=== PATIENT | male | born 2000 | race Caucasian/White ===

== ENCOUNTER 2019-11-19 11:07 | Emergency (ER) | payer OTHER ==
[2019-11-19] MEDS ORDERED: ROPIVACAINE 0.5% PF 20 ML AMPULE SUBQ STA (11:32)
--- NOTE | 2019-11-19 12:11 | XRAY Report ---
Reason: crush injury Procedure Date: 11/19/2019 Accession Number: [id number] / [id number] Procedure: XR - Hand 3 View LT CPT Code: Final Report FULL RESULT: PROCEDURE: Hand 3 View LT INDICATIONS: crush injury TECHNIQUE: 4 views of the hand(s) acquired. COMPARISON: None FINDINGS: Bones: The fingers are flexed, decreasing the ability to visualize bony detail. It is also difficult to identify the exact fingers that are injured. Patient states pain is in the third and fourth digit after a crush injury. However, the images suggest fractures involving the fourth and fifth fingers. There is a nondisplaced mildly comminuted distal phalanx fracture of what appears to be the fifth finger. There is a mildly displaced proximal shaft fracture of the proximal phalanx of what may be the fourth finger. No other fractures or dislocations. No suspicious bony lesions. Soft tissues: No suspicious soft tissue calcifications. IMPRESSION: 1. Suboptimal visualization secondary to hand positioning (patient was unable to extend his fingers) 2. There are 2 separate digits that have identifiable fractures on these images. 3. Nondisplaced mildly comminuted shaft fracture of the distal phalanx of what appears to be the fifth finger. 4. Mildly displaced proximal shaft fracture of the proximal phalanx of what appears to be the fourth finger. Comment: Recommend clinical correlation. Consider repeat films. Reviewed by: Yash Siddiqui MD on 11/19/2019 12:09 PM PDT Approved by: Yash Siddiqui MD on 11/19/2019 12:09 PM PDT Station ID: [id number]
--- NOTE | 2019-11-19 12:39 | ED Physician Documentation ---
PD HPI UPPER EXT INJURY - Stated complaint Stated Complaint: L HAND LAC - Chief complaint Chief Complaint: Laceration - History obtained from History obtained from: Patient - History of Present Illness Location: Left, Hand Type of injury: Crush Where injury occurred: Work Timing - onset: How many hours ago (1) Timing - duration: Hours (1) Timing - details: Abrupt onset Pain level max: 5 Pain level now: 4 Improved by: Rest Worsened by: Moving, Palpating Associated symptoms: Swelling. No: Weakness, Numbness, Tingling Contributing factors: No: Anticoagulated, Prior ortho surgery, Prosthetic joint Recently seen: Not recently seen Review of Systems Constitutional: denies: Fever, Chills Nose: denies: Rhinorrhea / runny nose, Congestion Respiratory: denies: Cough GI: denies: Nausea, Vomiting, Diarrhea Skin: denies: Rash Musculoskeletal: denies: Neck pain, Back pain Neurologic: denies: Headache PD PAST MEDICAL HISTORY - Past Medical History Past Medical History: No - Present Medications Home Medications: Ambulatory Orders Medication Instructions Recorded Confirmed Cephalexin [Keflex] 500 mg PO Q6H #28 capsule 11/19/19 Ibuprofen [Motrin] 800 mg PO Q8H PRN #30 tablet 11/19/19 - Allergies Allergies/Adverse Reactions: Allergies Allergy/AdvReac Type Severity Reaction Status Date / Time No Known Drug Allergies Allergy Verified 11/19/19 11:17 - Living Situation Living Situation: reports: With family Living Arrangement: reports: At home - Social History Does the pt have substance abuse?: No - Family History Family history: reports: Non contributory - Immunizations Immunizations are current?: Yes Immunizations: TDAP current <10years PD ED PE NORMAL - Vitals Vital signs reviewed: Yes - General General: Alert and oriented X 3, No acute distress - HEENT HEENT: Moist mucous membranes - Neck Neck: Supple, no meningeal sign - Derm Derm: Warm and dry - Neuro Neuro: Alert and oriented X 3 - Psych Psych: Normal mood PD ED PE EXPANDED - Extremities KRISTINA UE/Hands Visual: 1 - laceration (3 cm, curved, flap. Tendon intact. Strength test against resistance. Neurovascularly intact) 2 - abrasion (Mild skin avulsion. There is also tenderness over the mid phalanx. No deformity. Neurovascular intact. Strength test against resistance) 3 - tenderness (TTP, no deformity. NVI) Results - Vitals Vitals: Vital Signs - 24 hr 11/19/19 11/19/19 11:08 13:13 Temperature 37.0 C 37.5 C Heart Rate 57 L 70 Respiratory 16 16 Rate Blood Pressure 134/84 H 126/66 O2 Saturation 100 99 Oxygen O2 Source Room air - Rads (name of study) L hand xray Radiology: Prelim report reviewed, EMP read contemporaneously, See rad report (1. Suboptimal visualization secondary to hand positioning (patient was unable to extend his fingers) 2. There are 2 separate digits that have identifiable fr actures on these images. 3. Nondisplaced mildly comminuted shaft fracture of the distal phalanx of what appears to be the fifth finger. 4. Mildly displaced proximal shaft fracture of the proximal phalanx of what appears to be the fourth finger. ) Procedures - Laceration (location) L middle finger Length in cm: 3 Wound type: Curved, Flap, Into subcut fat, Clean Neurovascular status: Sensory intact, Motor intact, Vascular intact Tendon involvement: Tendon intact Anesthesia: OTH (ropivicaine 0.5%) Wound Preparation: Irrigated copiously NS, Wound explored, To the base Skin layer closure: Nylon, Interrupted, Size #-0 - enter number (4) Other: Patient tolerated well, No complications, Neurovascular intact, Dressing applied, Tetanus UTD Complexity: Simple - Splint (location) L hand Splint applied by: Physician, Tech Type of splint: Fiberglass, Volar cock up Other: Patient tolerated well, No complications, Neurovascular intact PD MEDICAL DECISION MAKING - ED course Complexity details: reviewed results, considered differential, d/w patient ED course: 19-year-old male with a crush injury to the left hand. Laceration was repaired. The ring finger also has a small skin avulsion, no suture needed at this site. Volar splint applied for the [address] on Keflex as well. Patient will follow-up with his doctor for further care. Warnings of infection and instructions on wound care given at bedside. Also counseled on how to minimize scarring. Patient counseled regarding signs and symptoms for which I believe and urgent re-evaluation would be necessary. Patient with good understanding of and agreement to plan and is comfortable going home at this time This document was made in part using voice recognition software. While efforts are made to proofread this document, sound alike and grammatical errors may occur. Departure - Departure Disposition: 01 Home, Self Care Clinical Impression: Finger laceration Qualifiers: Encounter type: initial encounter Finger: unspecified finger Damage to nail status: without damage Foreign body presence: without foreign body Laterality: left Qualified Code(s): S61.219A - Laceration without foreign body of unspecified finger without damage to nail, initial encounter Finger fracture, left Qualifiers: Encounter type: initial encounter Finger: ring finger Fracture type: closed Phalanx: middle Fracture alignment: displaced Qualified Code(s): S62.625A - Displaced fracture of middle phalanx of left ring finger, initial encounter for closed fracture Condition: Good Instructions: ED Fx Finger Closed, ED Laceration All Follow-Up: your,doctor in 1 week [Other] Prescriptions: Cephalexin [Keflex] 500 mg PO Q6H #28 capsule Ibuprofen [Motrin] 800 mg PO Q8H PRN #30 tablet PRN Reason: PAIN &/OR FEVER Comments: You have a fracture of your fourth finger in the middle phalanx. You also have a fracture of the fifth finger distal phalanx. The laceration on the third digit will need the sutures removed in approximately 10 days. Follow-up with your doctor in about a week for a wound check. You also may need to see orthopedics to ensure that the fractures in your fingers are healing appropriate ly. Take all antibiotics until gone. Return if you worsen. Discharge Date/Time: 11/19/19 13:25
[2019-11-19] MEDS ORDERED: BACITRACIN ZINC OINT 1 PACKET TOP STA (12:44)
[2019-11-19 13:18] VITALS: BP 126/66
== END 2019-11-19 13:25 | disposition home or self-care (01) ==
LOC: ED 11:07
DX: S62.667A Nondisplaced fracture of distal phalanx of left little finger, initial encounter for closed fracture (principal); S62.625A Displaced fracture of middle phalanx of left ring finger, initial encounter for closed fracture; S61.213A Laceration without foreign body of left middle finger without damage to nail, initial encounter; S60.414A Abrasion of right ring finger, initial encounter; W31.9XXA Contact with unspecified machinery, initial encounter; Y99.0 Civilian activity done for income or pay
CPT/HCPCS: 12002; 29125; 73130; 99283; 99284; A9270

== ENCOUNTER 2019-11-25 12:58 | Day surgery (SDC) | payer OTHER ==
[2019-11-25] MEDS ORDERED: CEFAZOLIN SODIUM IN 0.9 % NACL 2 GM/100 ML BAG IV ONE (13:13)
[2019-11-25] MEDS ORDERED: LACTATED RINGERS 1,000 ML IV ONE (13:36)
--- NOTE | 2019-11-25 14:59 | ANESTHESIA ---
Pre-Anesthesia VS, & Labs - Diagnosis left 4th finger fracture - Procedure left Percutaneous pinning of 4th finger Vital Signs: Temp Pulse Resp BP Pulse Ox 36.5 C 54 L 18 105/54 L 98 11/25/19 13:16 11/25/19 13:16 11/25/19 13:16 11/25/19 13:16 11/25/19 13:16 Height 5 ft 6 in Weight (kg) 70.4 kg Body Mass Index 25.8 - NPO Other (6 hour npo) Home Medications and Allergies Allergies/Adverse Reactions: Allergies Allergy/AdvReac Type Severity Reaction Status Date / Time No Known Drug Allergies Allergy Verified 11/19/19 11:17 Anes History & Medical History - Anesthetic History Anesthesia Complications: reports: No previous complications - Medical History Cardiovascular: reports: None Pulmonary: reports: None Gastrointestinal: reports: None Urinary: reports: None Musculoskeletal: reports: None Endocrine/Autoimmune: reports: None Skin: reports: None Exam General: Alert Dental: WNL Mouth Opening: Greater than 4 Fingerbreadths Neck Mobility: Normal Mallampati classification: I Thyromental Distance: greater than 6 cm Respiratory: Lungs clear Cardiovascular: Regular rate Plan Anesthesia Type: MAC Consent for Procedure(s) Verified and Reviewed: Yes Code Status: Attempt Resuscitation ASA classification: 1-Healthy patient Is this case an emergency?: No
[2019-11-25] MEDS ORDERED: fentaNYL 100 MCG/2 ML VIAL IVP ONE (15:30)
[2019-11-25] MEDS ORDERED: MIDAZOLAM 2 MG/2 ML VIAL IVP ONE (15:30)
[2019-11-25] MEDS ORDERED: PROPOFOL 200 MG/20 ML VIAL IVP ONE (15:30)
[2019-11-25] MEDS ORDERED: LIDOCAINE-MPF 2% 5 ML VIAL IM ONE (15:30)
[2019-11-25] MEDS ORDERED: LIDOCAINE-MPF 1% 30 ML VIAL ONE (15:34)
[2019-11-25] MEDS ORDERED: BUPIVACAINE 0.5% PF 30 ML VIAL ONE (15:34)
[2019-11-25] MEDS ORDERED: BUPIVACAINE 0.25% PF 30 ML VIAL ONE (15:34)
[2019-11-25] MEDS ORDERED: BUPIVACAINE 0.25% PF 30 ML VIAL SUBQ ONE (16:05)
[2019-11-25] MEDS ORDERED: LIDOCAINE 1% 50 ML MDV SUBQ ONE (16:05)
[2019-11-25] MEDS ORDERED: ONDANSETRON 4 MG/2 ML VIAL IVP PRN (17:31)
[2019-11-25] MEDS ORDERED: oxyCODONE 5 MG TABLET PO PRN (17:31)
--- NOTE | 2019-11-25 17:41 | OPERATIVE REPORT ---
Operative Report - Other Other Information/Narrative: Date of Surgery: 25 November 2019 Pre-Op Diagnosis: Left ring finger P2 open fracture. Left middle finger laceration. Left small finger P3 closed fracture Procedure: Open reduction percutaneous fixation of left ring finger fracture. Irrigation and debridement and exploration of left ring finger. Exploration, irrigation, and debridement of middle finger. Closed treatment of small finger P3 fracture Postop Diagnosis: Same Primary Surgeon: Timo Avila Secondary Surgeon: Enrique Dobbs Complications: None Tourniquet Time: None EBL: 5 cc Implants: 1.1 mm K wires buried under the skin Postoperative Protocol: Remain in splint until 4 weeks. Begin gentle range of motion for 4 to 8 weeks. Pin removal at 6 to 8 weeks. Indication For Surgery: 19-year-old male was carrying a heavy object with his coworker 6 days ago when he fell onto the ground pinching his finger between the concrete and the heavy object and sustaining the above injuries. He went to the emergency room and was diagnosed with a closed fracture of the ring finger as well as a closed fracture of the small finger in the middle finger laceration. Under local anesthetic the middle finger was closed. The ring finger was assessed as being an abrasion and not an open fracture. Antibiotics were given and he was discharged. He worked his way through the system until an orthopedics consult was made earlier this morning. He was assessed in the clinic as having a missed open fracture and was indicated for urgent operative management to prevent infection and apply fixation. The risks, benefits, and alternatives were discussed. Risks include pain, bleeding, infection, damage to nearby structures, numbness, lack of symptom relief, implant complications, nonunion, need for further surgery, DVT, PE, stroke, and . Written consent was obtained. Procedure in Detail: The patient was met in the pre-operative hold area on the day of the procedure. The operative extremity was signed and questions were answered. The patient was brought to the operating room and a deep sedation was administered. 6 cc of a 50-50 mixture of 1% lidocaine and 0.25% Marcaine plain was placed as a finger block for the middle ring and small fingers. Supine position was used and all bony prominences were padded. Standard prepping and draping was performed. A time out confirmed patient identification, laterality, procedure, allergies, antibiotics, and images. The sutures in the middle finger were removed and the wound was explored. The tendons were intact and a portion of the A2 roland had been lacerated yet there was no bowstringing. The wound was irrigated with 1 L of sterile saline, the skin edges were freshened, and then closed with 4 tack 0 nylon The ring finger was then explored and the incision was extended proximally in a Daphne type fashion. The fracture was seen adjacent to the flexor tendons. The flexor digitorum profundus was intact and draped over the point of the fracture volarly. There was no bowstringing however 1 of the pulleys was also damaged th e fracture was opened and cleaned with 1 L of sterile saline. A [id number] reduction clamp was used and the fracture was reduced and held in place. Fluoroscopy confirmed position. A K wire was then placed from dorsal ulnar to volar radial. As this K wire passed through the volar cortex which was very thick the fracture distracted just slightly in approximately 10 degrees of apex volar angulation was seen. The coronal alignment remained anatomic. There was no rotational deformity. Because of the tight real estate and the minimal amount of bone available the decision was made to accept this reduction and placement and another K wire was placed from radial to ulnar and a crossed pin fashion. This held the fracture stably and range of motion was assessed. Satisfied with the stability and alignment the wires were then cut under the skin. Final images were taken. The wound was again irrigated and closed with 4-0 nylon in a simple pattern. Additional local was added to the prior ring block. A sterile dressing and splint was applied. He was awakened and transferred to recovery room.
[2019-11-25 18:05] VITALS: BP 114/63
== END 2019-11-25 12:59 | disposition home or self-care (01) ==
LOC: SDS 12:58
PROVIDERS: ATTEND Orthopaedic Surgery
PROC: 0JJV0ZZ Inspection of Upper Extremity Subcutaneous Tissue and Fascia, Open Approach (ICD-10-PCS; 2019-11-25)
PROC: 2W3KX1Z Immobilization of Left Finger using Splint (ICD-10-PCS; 2019-11-25)
PROC: 0PSV04Z Reposition Left Finger Phalanx with Internal Fixation Device, Open Approach (ICD-10-PCS; principal; 2019-11-25 14:00)
DX: S62.625A Displaced fracture of middle phalanx of left ring finger, initial encounter for closed fracture (principal); S62.637A Displaced fracture of distal phalanx of left little finger, initial encounter for closed fracture; S63.613A Unspecified sprain of left middle finger, initial encounter; S61.213A Laceration without foreign body of left middle finger without damage to nail, initial encounter; W23.0XXA Caught, crushed, jammed, or pinched between moving objects, initial encounter; Y92.139 Unspecified place military base as the place of occurrence of the external cause; Y99.1 Military activity; F17.290 Nicotine dependence, other tobacco product, uncomplicated

== ENCOUNTER 2020-01-05 13:20 | Day surgery (SDC) | payer OTHER ==
[2020-01-05] MEDS ORDERED: LACTATED RINGERS 1,000 ML IV ONE ×2 (13:32→17:10)
[2020-01-05] MEDS ORDERED: CEFAZOLIN SODIUM IN 0.9 % NACL 2 GM/100 ML BAG IV ONE (13:34)
--- NOTE | 2020-01-05 14:42 | ANESTHESIA ---
Pre-Anesthesia VS, & Labs - Diagnosis fracture of left ring finger - Procedure ORIF left ring finger Vital Signs: Temp Pulse Resp BP Pulse Ox 36.3 C L 48 L 16 109/75 97 01/05/20 13:32 01/05/20 13:32 01/05/20 13:32 01/05/20 13:32 01/05/20 13:32 Height 5 ft 7 in Weight (kg) 74.84 kg Body Mass Index 25.8 - NPO >8 hours Home Medications and Allergies Allergies/Adverse Reactions: Allergies Allergy/AdvReac Type Severity Reaction Status Date / Time No Known Drug Allergies Allergy Verified 11/19/19 11:17 Anes History & Medical History - Anesthetic History Anesthesia Complications: reports: No previous complications - Medical History Cardiovascular: reports: None Pulmonary: reports: None Gastrointestinal: reports: None Urinary: reports: None Neuro: reports: None Musculoskeletal: reports: None Endocrine/Autoimmune: reports: None Blood Disorders: reports: None Skin: reports: None Smoking Status: Current every day smoker (Vapes daily) Psychosocial: reports: No issues indicated - Surgical History Orthopedic: Other (Left ring finger) Exam General: Alert, Oriented x3, Cooperative, No acute distress Dental: WNL Mouth Openin Fingerbreadth Neck Mobility: Normal Mallampati classification: II Thyromental Distance: 4-6 cm Respiratory: Lungs clear, Normal breath sounds, No respiratory distress, No accessory muscle use Cardiovascular: Regular rate, Normal S1, Normal S2, No murmurs Mental/Cognitive Status: Alert/Oriented X3, Normal for patient Plan Anesthesia Type: General Consent for Procedure(s) Verified and Reviewed: Yes Code Status: Attempt Resuscitation ASA classification: 2-Mild systemic disease Is this case an emergency?: No
[2020-01-05] MEDS ORDERED: BUPIVACAINE 0.25% PF 30 ML VIAL ONE (15:21)
[2020-01-05] MEDS ORDERED: fentaNYL 100 MCG/2 ML VIAL IVP ONE (15:25)
[2020-01-05] MEDS ORDERED: DEXAMETHASONE 4 MG/ML VIAL IVP ONE (15:25)
[2020-01-05] MEDS ORDERED: LIDOCAINE-MPF 2% 5 ML VIAL IM ONE (15:25)
[2020-01-05] MEDS ORDERED: PROPOFOL 200 MG/20 ML VIAL IVP ONE (15:25)
[2020-01-05] MEDS ORDERED: ONDANSETRON 4 MG/2 ML VIAL IVP ONE (15:25)
[2020-01-05] MEDS ORDERED: BUPIVACAINE 0.25% PF 30 ML VIAL SUBQ ONE (16:04)
[2020-01-05] MEDS ORDERED: ONDANSETRON 4 MG/2 ML VIAL IVP PRN (18:04)
[2020-01-05] MEDS ORDERED: oxyCODONE 5 MG TABLET PO PRN (18:04)
--- NOTE | 2020-01-05 18:22 | OPERATIVE REPORT ---
Operative Report - Other Other Information/Narrative: date of Surgery: 05 January 2020 Pre-Op Diagnosis: Left ring finger P2 fracture pending nonunion. Left small finger P3 shaft pending nonunion. Procedure: Open reduction internal fixation of left ring finger P2 fracture. Closed reduction percutaneous fixation of left small finger P3 fracture. Removal of deep implants. Postop Diagnosis: Same as above Primary Surgeon: Timo Avila Secondary Surgeon: Enrique Dobbs Complications: None Tourniquet Time: 103 minutes EBL: 2 cc Implants: Synthes 2.0 mm plate, 4 holes with 4 screws of 1.5 mm diameter. 1.1 mm K wire Postoperative Protocol: Leave splint on until follow-up. No range of motion for the ring finger for 4 weeks. Plan to remove the small finger pin at 6 weeks. Indication For Surgery: 19-year-old male who sustained an open fracture to the left ring finger and a closed fracture of the left small finger approximately 6 weeks ago. He underwent closed reduction percutaneous fixation of the ring finger a few days later and this went on to lose reduction and rotate. The small finger has not shown any bony healing with splint. The ring finger was rotated and met operative indications. The risks, benefits, and alternatives were discussed. Risks include pain, bleeding, infection, damage to nearby structures, numbness, lack of symptom relief, implant complications, nonunion, need for further surgery, DVT, PE, stroke, and . Written consent was obtained. Procedure in Detail: The patient was met in the pre-operative hold area on the day of the procedure. The operative extremity was signed and questions were answered. The patient was brought to the operating room and a general anesthetic was administered. Supine position was used and bony prominences were padded. Standard prepping and draping was performed. A time out confirmed patient identification, laterality, procedure, allergies, antibiotics, and images. An Esmarch was used to exsanguinate the limb and the tourniquet was elevated to 250 mmHg. A dorsal incision was made over the ring finger middle phalanx and sharp dissection was brought down to the extensor mechanism. Extensor mechanism was split in line. Identified the pins and noted them to be in bone in both the proximal and distal fragment. The pins were then removed. The fracture was easily mobilized and early callus and blocks to reduction were removed. It was found that the fracture had started to heal slightly and there was some loss of bony landmarks making it challenging to find any keyed in reduction. We had to rely on clinical alignment of the finger to loan analyst the reduction. Fluoroscopy was used and the plate was applied dorsally and fixed to the distal fragment. This aligned the finger nicely and then 2 screws were placed in the proximal fragment. Because the plate had to be short the second screw from the PIP joint did not have adequate purchase and was at the fracture line. The decision was made to remove the second screw and lag through the fracture into the distal fragment and the fixation was excellent. All screw lengths were Short with the goal to not bother the flexor tendons. Fluoroscopy showed an excellent reduction and there was no rotational deformity or significant angular deformity on clinical evaluation. I then assessed the small finger P3 fracture under fluoroscopy and found it to be unstable. A 1.1 mm K wire was then placed from the tip down through the fracture to stabilize it. Stability was excellent and the pin was safe. It was bent and capped. The incision was irrigated copiously and closed in a layered fashion with 3-0 Vicryl reapproximating the extensor tendons and interrupted sutures in the skin. Finger blocks were applied to both the ring and small fingers. An aluminum foam finger splint was taped to the dressing and an ulnar gutter splint was applied in the position of function. The patient was awakened and transferred to recovery room.
[2020-01-05 18:44] VITALS: BP 111/72
[2020-01-05] MEDS ORDERED: oxyCODONE 5 MG TABLET ONE (18:47)
== END 2020-01-05 13:21 | disposition home or self-care (01) ==
LOC: SDS 13:20
PROVIDERS: ATTEND Orthopaedic Surgery
PROC: 0PSV34Z Reposition Left Finger Phalanx with Internal Fixation Device, Percutaneous Approach (ICD-10-PCS; 2020-01-05)
PROC: 0PSV04Z Reposition Left Finger Phalanx with Internal Fixation Device, Open Approach (ICD-10-PCS; principal; 2020-01-05 14:30)
DX: S62.625B Displaced fracture of middle phalanx of left ring finger, initial encounter for open fracture (principal); S62.637A Displaced fracture of distal phalanx of left little finger, initial encounter for closed fracture; F17.290 Nicotine dependence, other tobacco product, uncomplicated; Z98.890 Other specified postprocedural states; X58.XXXA Exposure to other specified factors, initial encounter

== ENCOUNTER 2020-03-29 08:19 | Day surgery (SDC) | payer OTHER ==
[2020-03-29] MEDS ORDERED: CEFAZOLIN SODIUM IN 0.9 % NACL 2 GM/100 ML BAG IV ONE (08:34)
[2020-03-29] MEDS ORDERED: HYDROmorphone 0.5 MG/0.5 ML SYRINGE IVP PRN (08:52)
[2020-03-29] MEDS ORDERED: NALOXONE 0.4 MG/ML VIAL IVP PRN (08:52)
[2020-03-29] MEDS ORDERED: ATROPINE ABBOJECT 1 MG/10 ML SYRINGE IVP PRN (08:52)
[2020-03-29] MEDS ORDERED: ePHEDrine 50 MG/ML VIAL IVP PRN (08:52)
[2020-03-29] MEDS ORDERED: fentaNYL 100 MCG/2 ML VIAL IVP PRN (08:52)
[2020-03-29] MEDS ORDERED: METOCLOPRAMIDE 10 MG/2 ML VIAL IVP PRN (08:52)
[2020-03-29] MEDS ORDERED: MORPHINE 2 MG/ML CARPUJECT IVP PRN (08:52)
[2020-03-29] MEDS ORDERED: ONDANSETRON 4 MG/2 ML VIAL IVP PRN ×2 (08:52→10:19)
--- NOTE | 2020-03-29 08:52 | ANESTHESIA ---
Pre-Anesthesia VS, & Labs - Diagnosis left ring finger symptomatic implant - Procedure left ring finger implant removal Vital Signs: Temp Pulse Resp BP Pulse Ox 36.5 C 55 L 16 118/72 99 03/29/20 08:39 03/29/20 08:39 03/29/20 08:39 03/29/20 08:39 03/29/20 08:39 Height: 5 ft 9 in Weight (kg): 76 kg Body Mass Index: 24.7 BMI Classification: Healthy weight - NPO >8 hours Home Medications and Allergies Allergies/Adverse Reactions: Allergies Allergy/AdvReac Type Severity Reaction Status Date / Time No Known Drug Allergies Allergy Verified 03/25/20 15:45 Anes History & Medical History - Anesthetic History Anesthesia Complications: reports: No previous complications Family history of Anesthesia Complications: Denies Family history of Malignant Hyperthermia: Denies - Medical History Cardiovascular: reports: None Pulmonary: reports: None Gastrointestinal: reports: None Urinary: reports: None Neuro: reports: None Musculoskeletal: reports: Other Endocrine/Autoimmune: reports: None Blood Disorders: reports: None Skin: reports: None Smoking Status: Current every day smoker (Vapes daily) - Surgical History Orthopedic: Other Exam General: Alert, Oriented x3, Cooperative, No acute distress Dental: WNL Mouth Openin Fingerbreadth Neck Mobility: Normal Mallampati classification: I Respiratory: Lungs clear, Normal breath sounds, No respiratory distress, No accessory muscle use Cardiovascular: Regular rate, Normal S1, Normal S2, No murmurs Plan Anesthesia Type: General, MAC Consent for Procedure(s) Verified and Reviewed: Yes Code Status: Attempt Resuscitation ASA classification: 1-Healthy patient Is this case an emergency?: No
[2020-03-29] MEDS ORDERED: LIDOCAINE 1% 50 ML MDV ONE (08:58)
[2020-03-29] MEDS ORDERED: LACTATED RINGERS 1,000 ML IV ONE (08:59)
[2020-03-29] MEDS ORDERED: LACTATED RINGERS 1,000 ML IV SCH (09:00)
[2020-03-29] MEDS ORDERED: LIDOCAINE 1% 50 ML MDV SUBQ ONE ×2 (09:24)
[2020-03-29] MEDS ORDERED: LACTATED RINGERS 400 ML IV ONE (10:07)
--- NOTE | 2020-03-29 10:09 | ANESTHESIA POST OP EVALUATION ---
Anesthesia Post Eval - Post Anesthesia Eval Vitals: Last Vital Signs Temp 36.5 C 03/29/20 08:39 Pulse 55 L 03/29/20 08:39 Resp 16 03/29/20 08:39 BP 118/72 03/29/20 08:39 Pulse Ox 99 03/29/20 08:39 CV Function Including HR & BP: positive: Stable Pain Control: positive: Satisfactory Nausea & Vomiting: positive: Negative Mental Status: positive: Baseline Respiratory Status: Airway Patent Hydration Status: Satisfactory Anesthesia Complications: positive: None
[2020-03-29] MEDS ORDERED: oxyCODONE 5 MG TABLET PO PRN (10:19)
--- NOTE | 2020-03-29 10:31 | OPERATIVE REPORT ---
Operative Report - Other Other Information/Narrative: Date of Surgery: 29 March 2020 Pre-Op Diagnosis: Left ring finger symptomatic implants with extensor tendon adhesions Procedure: Left ring finger implant removal, and extensor tendon tenolysis Postop Diagnosis: Same Primary Surgeon: Timo Avila Secondary Surgeon: None Complications: None Tourniquet Time: 26 minutes EBL: 5 cc Implants: Mini fragment plate and 4 screws were removed Cultures: Left ring finger plates and tissue from the dorsal bone Findings: Central slip was intact and the terminal tendon with lateral bands were intact. The lateral bands had significant scar tissue. The bone underlying the plate appeared to be healthy consolidating callus and there was no evidence of purulent or infectious material. Postoperative Protocol: Gentle active and passive range of motion allowed immediately, motion can be advanced once the skin incision is healed. Follow-up in 2 weeks for suture removal. Indication For Surgery: 19-year-old male who has had an extensive history for his left ring finger. He initially had a missed open fracture in the emergency room and underwent a delayed washout and pin fixation. The pins lost fixation and displaced and he therefore had them removed and a dorsal plate applied. He continued to have some drainage from the wound for longer than would be expected and there is concern for a deep infection. He also had some stiffness in his finger so it was reasonable to remove the plate and perform a tenolysis and obtain cultures. The risks, benefits, and alternatives were discussed. Risks include pain, bleeding, infection, damage to nearby structures, numbness, lack of symptom relief, implant complications, nonunion, need for further surgery, DVT, PE, stroke, and . Written consent was obtained. Procedure in Detail: The patient was met in the pre-operative hold area on the day of the procedure. The operative extremity was signed and questions were answered. The patient was brought to the operating room and a MAC anesthetic was administered. Supine position was used and all bony prominences were padded. Standard prepping and draping was performed. A time out confirmed patient identification, laterality, procedure, allergies, antibiotics have been held until after the cultures were taken, and images. 8 cc of local anesthetic were placed in a ring block around the finger and we waited for it to set up. An Esmarch was used to exsanguinate the limb and the tourniquet was elevated. The old incision was opened and the extensor tendon was freed up from the overlying skin. The extensor tendon was then split in line with its fibers distally, not much splitting was necessary proximally because the triangular ligament had been attenuated. There was no purulence. The plate and screws were seen and they were removed. The underlying bone appeared to be healthy callus and the fracture remains stable after the screws have been removed. Adjacent soft tissue was taken and any loose tissue was excised and sent for culture. A careful tenolysis was performed both deep and superficial to the lateral bands until they moved without any adhesions. The central slip remained intact and was visualized within the wound. The wound was then irrigated copiously and the tendon split was then brought back together anatomically. The tourniquet was then dropped and antibiotics were given. The skin was closed with 4-0 nylon in an interrupted fashion and a sterile soft dressing was applied. No splint was necessary. He was awakened and transferred to the recovery room.
[2020-03-29 10:36] VITALS: BP 107/64
[2020-03-29] MEDS ORDERED: oxyCODONE 5 MG TABLET ONE (10:56)
== END 2020-03-29 08:20 | disposition home or self-care (01) ==
LOC: SDS 08:19
PROVIDERS: ATTEND Orthopaedic Surgery
DX: T85.898A Other specified complication of other internal prosthetic devices, implants and grafts, initial encounter (principal); R22.32 Localized swelling, mass and lump, left upper limb; M65.842 Other synovitis and tenosynovitis, left hand; F17.290 Nicotine dependence, other tobacco product, uncomplicated
CPT/HCPCS: 87070; 87205

== ENCOUNTER 2022-07-11 12:34 | Outpatient (CLI) | payer OTHER ==
--- NOTE | 2022-07-11 17:36 | MRI Report ---
PROCEDURE: SHOULDER WO - RT INDICATIONS: PAIN IN RIGHT SHOULDER TECHNIQUE: Noncontrast oblique coronal T2 fast spin echo with fat saturation, oblique sagittal T1 spin echo and T2 fast spin echo with fat saturation, axial T1 spin echo and T2 fast spin echo with fat saturation t hrough the shoulder. COMPARISON: None. FINDINGS: Image quality: Excellent. Rotator cuff: Tendinosis and low-grade bursal surface partial-thickness tear involving distal suprasp inatus is seen extending to muscular tendinous junction. Distal infraspinatus is intact. Distal subsc apularis tendinosis is seen. No full-thickness rotator cuff tendon rupture. No rotator cuff muscle at rophy on sagittal images. Bones and bursae: No bone marrow contusions or fractures. No acromioclavicular joint degeneration. The acromion demonstrates conventional anatomy, without an os acromiale. No pathologic subacromial/ subdeltoid bursal fluid is present. Capsule and soft tissues: There is signal abnormality and contour irregularity involving posterior la mauro at 6-10 o'clock position concerning for posterior superior labral tear. The long head of the bic eps tendon demonstrates normal location and morphology. The rotator interval appears normal, without fibrosis. The coracohumeral ligament is normal in thickness. IMPRESSION: 1. Tendinosis and low-grade bursal surface partial-thickness involving distal supraspinatus extending to muscular tendinous junction. Distal subscapularis tendinosis. No full-thickness rotator cuff tend on rupture. No muscle atrophy. 2. No marrow edema. No fracture or dislocation. 3. Suggestion of posterior labral tear at 6 to 10:00 position. Anterior labrum is intact. Reviewed by: Tushar Cullen MD on 07/11/2022 5:35 PM PST Approved by: Tushar Cullen MD on 07/11/2022 5:35 PM PST Station ID: [id number]
== END 2022-07-11 12:35 | disposition home or self-care (01) ==
LOC: DI 12:34
PROVIDERS: ATTEND Physician Assistant
DX: M75.111 Incomplete rotator cuff tear or rupture of right shoulder, not specified as traumatic (principal)

== ENCOUNTER 2023-01-02 12:38 | Outpatient (CLI) | payer OTHER ==
--- NOTE | 2023-01-02 15:36 | MRI Report ---
PROCEDURE: ANKLE WO - LT INDICATIONS: LEFT ANKLE PAIN TECHNIQUE: Noncontrast Magnetic Resonance Imaging (MRI) of the ankle/hindfoot was performed utilizing the follow ing sequences: sagittal T1 spin echo, sagittal T2 fast spin echo with fat saturation, axial PD fast s pin echo, axial T2 fast spin echo with fat saturation, coronal T1 spin echo, and coronal T2 fast spin echo with fat saturation. COMPARISON: None. FINDINGS: Image quality: Excellent. Bones and joints: No acute trabecular bone injury or fracture. No hindfoot coalition. Pes planus alignment. Degenerativ e spurring is seen at the dorsal talonavicular joint. Mild osseous edema and cystic changes are seen at the posterior lateral aspect of the talus. Small amount of fluid is seen along the lateral talonav icular joint may represent a ganglion cyst or small joint effusion. Medial structures: The deep fibers of the deltoid ligament are intact. The tibiospring ligament and the superomedial ban d of the spring ligament are present medially around the talar head. There is mild distal posterior t ibialis tenosynovitis. The flexor digitorum longus and flexor hallucis longus tendons are intact. The posterior tibial neurovascular bundle appears normal within the tarsal tunnel, without extrinsic mas s effect. Lateral structures: The anterior and posterior distal tibiofibular ligaments are intact. There is thickening of the anter ior talofibular ligament and calcaneofibular ligament compatible with remote prior moderate grade spr ains. The posterior talofibular ligament is intact. The peroneus brevis and longus tendons are intact . There is effacement of the normal fat in the sinus tarsi. Anterior structures: The tibialis anterior, extensor hallucis longus, and extensor digitorum longus tendons appear intact. Posterior and plantar structures: The Achilles tendon is intact. There is thickening of the proximal plantar fascia without surrounding edema, consistent with chronic fasciopathy. No disproportionate atrophy of the abductor digiti minim i muscle. IMPRESSION: 1.Pes planus. 2.Tibiospring ligament and the superomedial band of the spring ligament are bowed medially around the talar head without definite discontinuity of ligament fibers. 3.Mild posterior tibialis tenosynovitis. No tendon tearing is seen. 4.Mild osseous edema and cystic changes at the posterior lateral talus, likely degenerative or relate d to osseous impingement versus secondary to prior trauma. 5.Remote prior grade 2 sprains of the anterior talofibular ligament and the calcaneofibular ligament. 6.Mild chronic proximal plantar fasciitis. Reviewed by: Mihir Danielle MD on 01/02/2023 3:35 PM PDT Approved by: Mihir Danielle MD on 01/02/2023 3:35 PM PDT Station ID: [id number]
== END 2023-01-02 12:39 | disposition home or self-care (01) ==
LOC: DI 12:38
PROVIDERS: ATTEND Physician Assistant
DX: M21.42 Flat foot [pes planus] (acquired), left foot (principal); M65.9 Synovitis and tenosynovitis, unspecified; R93.6 Abnormal findings on diagnostic imaging of limbs; M72.2 Plantar fascial fibromatosis